=== PATIENT | male | born 1960 | race Caucasian/White ===

== ENCOUNTER 2019-04-20 12:15 | Inpatient (IN) | payer OTHER, MEDICARE ==
[2019-04-20 15:17] LABS: BASO % 0.9 % (0-2.0); EOS % 0.8 % (0-4.5); HEMATOCRIT 40.1 % (35.4-49); HEMOGLOBIN 13.6 GM/dL (11.7-16.9); LYMPH % 23.5 % (8-40); MCHC 33.9 g/dl (32.0-35.9); MEAN CELL VOLUME 91.3 fl (80-96); MEAN PLT VOLUME 7.8 fl (7.5-11.1); MONO % 8.8 % (3.8-10.2); PLATELET COUNT 245 K/MM3 (134-434); RBC 4.39 M/mm3 (4.00-5.60); WHITE BLOOD COUNT 6.6 K/mm3 (4.0-10.0)
[2019-04-20 15:37] LABS: INR 1.18 (0.83-1.09)
[2019-04-20] MEDS ORDERED: methylPREDNISolone NA SUCC 1000 MG/8 ML VIAL IVPB ONE (15:37)
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
[2019-04-20 15:41] LABS: ALBUMIN 3.7 g/dl (3.4-5.0); BILIRUBIN,TOTAL 0.2 mg/dL (0.2-1); BLOOD UREA NITROGEN 19.9 mg/dL (7-18); CALCIUM 9.3 mg/dL (8.5-10.1); CREATININE 0.7 mg/dL (0.55-1.3); POTASSIUM 3.7 mmol/L (3.5-5.1); TOT PROT 6.5 g/dl (6.4-8.2)
--- NOTE | 2019-04-20 15:58 | PDOC ---
Attending Attestation - Resident Resident Name: TrulatoyaJason - ED Attending Attestation I have performed the following: I have examined & evaluated the patient, The case was reviewed & discussed with the resident, I agree w/resident's findings & plan - HPI HPI: 04/20/19 15:56 59y/o M sent for admission for iv steroids by Dr. Silverio for management of MS. - Physicial Exam PE: 04/20/19 15:56 VSS, no respiratory distress, alert and conversant s1s2 rrr, ctab - Medical Decision Making 04/20/19 15:57 59y/o M for steroid management of MS. labs sent Dr. Silverio consulted steroids initiated admit Heart Score/ECG Review #1 ECG reviewed & interpreted by me at: 14:30 General ECG Interpretation: Sinus Rhythm, Normal Rate (64), Normal Intervals ( qtc 418), No acute ischemic changes
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
[2019-04-20] MEDS ORDERED: DOXYCYCLINE HYCLATE 100 MG CAPSULE PO SCH (18:15)
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
[2019-04-20] MEDS ORDERED: methylPREDNISolone NA SUCC 1000 MG/8 ML VIAL IVPB SCH (22:00)
[2019-04-20] MEDS: methylPREDNISolone NA SUCC 125 MG/2 ML VIAL IVPB SCH (22:17)
[2019-04-20] MEDS: METHADONE HCL 5 MG TABLET PO SCH (22:18)
[2019-04-20] MEDS: DOXYCYCLINE HYCLATE 100 MG CAPSULE PO SCH ×2 (22:18→23:02)
[2019-04-20] MEDS: FUROSEMIDE 40 MG TABLET (FP) PO SCH ×2 (22:18→23:03)
[2019-04-21 07:51] LABS: BASO % 0.2 % (0-2.0); HEMATOCRIT 41.6 % (35.4-49); HEMOGLOBIN 14.3 GM/dL (11.7-16.9); LYMPH % 18.6 % (8-40); MCH 31.8 pg (25.7-33.7); MCHC 34.4 g/dl (32.0-35.9); MEAN CELL VOLUME 92.4 fl (80-96); MEAN PLT VOLUME 7.9 fl (7.5-11.1); MONO % 1.1 % (3.8-10.2); NEUT % 80.1 % (42.8-82.8); PLATELET COUNT 232 K/MM3 (134-434); RDW 13.8 % (11.9-15.9); WHITE BLOOD COUNT 3.7 K/mm3 (4.0-10.0)
--- NOTE | 2019-04-21 08:04 | PN ---
Physical Exam: SUBJECTIVE: Patient seen and examined OBJECTIVE: Vital Signs Period Temp Pulse Resp BP Sys/Porter Pulse Ox Last 24 Hr 97.7 F-98.2 F 56-89 16-22 110-148/74-102 97-100 GENERAL: The patient is awake, alert, and fully oriented, in no acute distress. HEAD: Normal with no signs of trauma. EYES: PERRL, extraocular movements intact, sclera anicteric, conjunctiva clear. No ptosis. ENT: Ears normal, nares patent, oropharynx clear without exudates, moist mucous membranes. NECK: Trachea midline, full range of motion, supple. LUNGS: Breath sounds equal, clear to auscultation bilaterally, no wheezes, no crackles, no accessory muscle use. HEART: Regular rate and rhythm, S1, S2 without murmur, rub or gallop. ABDOMEN: Soft, nontender, nondistended, normoactive bowel sounds, no guarding, no rebound, no hepatosplenomegaly, no masses. EXTREMITIES: 2+ pulses, warm, well-perfused, no edema. NEUROLOGICAL: Cranial nerves II through XII grossly intact. Normal speech, gait not observed. PSYCH: Normal mood, normal affect. SKIN: Warm, dry, normal turgor, no rashes or lesions noted Laboratory Results - last 24 hr 04/20/19 04/20/19 04/20/19 14:57 14:57 14:57 WBC 6.6 RBC 4.39 Hgb 13.6 Hct 40.1 MCV 91.3 MCH 31.0 MCHC 33.9 RDW 14.0 Plt Count 245 MPV 7.8 Absolute Neuts (auto) 4.3 Neutrophils % 66.0 Lymphocytes % 23.5 Monocytes % 8.8 Eosinophils % 0.8 Basophils % 0.9 Nucleated RBC % 0 PT with INR INR PTT (Actin FS) 32.4 Sodium 141 Potassium 3.7 Chloride 104 Carbon Dioxide 32 Anion Gap 6 L BUN 19.9 H Creatinine 0.7 Est GFR (CKD-EPI)AfAm 118.88 Est GFR (CKD-EPI)NonAf 102.57 Random Glucose 89 Calcium 9.3 Total Bilirubin 0.2 AST 22 ALT 29 Alkaline Phosphatase 94 Total Protein 6.5 Albumin 3.7 04/20/19 14:57 WBC RBC Hgb Hct MCV MCH MCHC RDW Plt Count MPV Absolute Neuts (auto) Neutrophils % Lymphocytes % Monocytes % Eosinophils % Basophils % Nucleated RBC % PT with INR 14.00 H INR 1.18 H PTT (Actin FS) Sodium Potassium Chloride Carbon Dioxide Anion Gap BUN Creatinine Est GFR (CKD-EPI)AfAm Est GFR (CKD-EPI)NonAf Random Glucose Calcium Total Bilirubin AST ALT Alkaline Phosphatase Total Protein Albumin Active Medications Generic Name Dose Route Start Last Admin Trade Name Freq PRN Reason Stop Dose Admin Doxycycline Hyclate 100 mg 04/21/19 07:00 Vibramycin - PO AM [facility] Doxycycline Hyclate 200 mg 04/20/19 22:00 04/20/19 23:02 Vibramycin - PO Not Given HS [facility] Enoxaparin Sodium 40 mg 04/21/19 10:00 Lovenox - SQ DAILY [facility] Furosemide 40 mg 04/20/19 22:00 04/20/19 23:03 Lasix - PO Not Given BID [facility] Methadone HCl 5 mg 04/20/19 22:00 04/20/19 22:18 Dolophine - PO 5 mg TID [facility] Administration Methylprednisolone Sodium Succinate 500 mg 04/20/19 22:00 04/20/19 22:17 Solu-Medrol - IVPB 04/25/19 10:01 500 mg BID [facility] Administration ASSESSMENT/PLAN: ATTENDING PHYSICIAN STATEMENT I saw and evaluated the patient. I reviewed the resident's note and discussed the case with the resident. I agree with the resident's findings and plan as documented. SUBJECTIVE: OBJECTIVE: ASSESSMENT AND PLAN:
[2019-04-21 08:21] LABS: BLOOD UREA NITROGEN 13.7 mg/dL (7-18); CALCIUM 9.4 mg/dL (8.5-10.1); CREATININE 0.7 mg/dL (0.55-1.3); MAGNESIUM 2.5 mg/dL (1.8-2.4); POTASSIUM 4.1 mmol/L (3.5-5.1)
[2019-04-21] MEDS: methylPREDNISolone NA SUCC 125 MG/2 ML VIAL IVPB SCH ×2 (09:17→21:56)
[2019-04-21] MEDS: DOXYCYCLINE HYCLATE 100 MG CAPSULE PO SCH ×2 (09:18→21:56)
[2019-04-21] MEDS: ENOXAPARIN NA (PORCINE) 40 MG/0.4 ML DISP.SYRIN SQ SCH (09:19)
[2019-04-21] MEDS: FUROSEMIDE 40 MG TABLET (FP) PO SCH (09:19)
[2019-04-21] MEDS: METHADONE HCL 5 MG TABLET PO SCH ×3 (09:19→21:56)
[2019-04-21] MEDS ORDERED: ENOXAPARIN NA (PORCINE) 40 MG/0.4 ML DISP.SYRIN SQ SCH (10:00)
--- NOTE | 2019-04-21 10:18 | EKG ---
Test Reason : Blood Pressure : / mmHG Vent. Rate : 064 BPM Atrial Rate : 064 BPM P-R Int : 118 ms QRS Dur : 086 ms QT Int : 406 ms P-R-T Axes : 031 000 037 degrees QTc Int : 418 ms NORMAL SINUS RHYTHM NORMAL ECG NO PREVIOUS ECGS AVAILABLE Confirmed by KENTRELL CANAS, VARGHESE ([id number]) on 04/21/2019 10:18:33 AM Referred By: Confirmed By:VARGHESE PFEIFFER MD
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
--- NOTE | 2019-04-21 15:28 | ECHO ---
Name: BRIJESH MITCHELL Exam:Adult Echocardiogram Study Date: 04/21/2019 02:10 PM Age: 59 yrs Reason For Study: tachycardia Height: 69 in Weight: 127 lb BSA: 1.7 m2 MMode/2D Measurements & Calculations IVSd: 0.97 cm Ao root diam: 3.3 cm LVIDd: 5.7 cm LA dimension: 3.1 cm LVIDs: 4.2 cm ACS: 1.8 cm LVPWd: 0.86 cm IVSs: 1.4 cm LVPWs: 1.2 cm EDV(Teich): 159.6 ml ESV(Teich): 76.5 ml Doppler Measurements & Calculations MV E max kapil: 76.8 cm/sec Ao V2 max: 145.9 cm/sec MV A max kapil: 58.0 cm/sec Ao max P.5 mmHg MV E/A: 1.3 Ao V2 mean: 106.5 cm/sec Ao mean P.0 mmHg Ao V2 VTI: 32.3 cm Med Peak E' Kapil: 7.5 cm/sec Med E/e': 10.3 Lat Peak E' Kapil: 10.9 cm/sec Lat E/e': 7.1 Procedure A two-dimensional transthoracic echocardiogram with color flow and Doppler was performed. Left Ventricle The left ventricular size, thickness and function are normal. The left ventricular ejection fraction is normal. Left Ventricular Filling pattern is normal for age. The left ventricular wall motion is willi l. Right Ventricle The right ventricle is not well visualized. Atria Normal left and right atrial size and function. Mitral Valve The mitral valve is normal in structure and function. There is no mitral valve stenosis. There is tra ce to mild mitral regurgitation. Tricuspid Valve There is trivial tricuspid valve thickening. There is no tricuspid stenosis. There was insufficient T R detected to calculate RV systolic pressure. Aortic Valve The aortic valve is normal in structure and function. No hemodynamically significant valvular aortic stenosis. No aortic regurgitation is present. Pulmonic Valve The pulmonic valve is not well visualized. Great Vessels The aortic root is normal size. Pericardium/Pleura There is no pericardial effusion. Interpretation Summary The left ventricular size, thickness and function are normal The left ventricular ejection fraction is normal. Left Ventricular Filling pattern is normal for age. The left ventricular wall motion is normal. There is trace to mild mitral regurgitation. There was insufficient TR detected to calculate RV systolic pressure. MD Kiran De La Rosa 04/21/2019 03:27 PM
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
--- NOTE | 2019-04-21 18:11 | PN ---
Teaching Attending Note Name of Resident: Isamar Suarez ATTENDING PHYSICIAN STATEMENT I saw and evaluated the patient. I reviewed the resident's note and discussed the case with the resident. I agree with the resident's findings and plan as documented. SUBJECTIVE: No significant improvement in R hand weakness. OBJECTIVE: Afebrile, Hemodynamically Stable. Last Vital Signs Temp Pulse Resp BP Pulse Ox 98.8 F 93 H 20 113/81 97 04/21/19 13:55 04/21/19 13:55 04/21/19 13:55 04/21/19 13:55 04/21/19 00:47 Heart - S1, S2, RRR Lungs - clear to auscultation Abdomen - Soft, non-tender. Bowel Sounds normal. Extremities - mild edema, no calf tenderness, R Hand splinted. Neuro - AAO x 3. Unable to move lower extremities. Weakness R upper extremity, worse distally in hand. Laboratory Results - last 24 hr 04/21/19 04/21/19 04/21/19 05:54 06:45 06:45 WBC 3.7 L RBC 4.50 Hgb 14.3 Hct 41.6 MCV 92.4 MCH 31.8 MCHC 34.4 RDW 13.8 Plt Count 232 MPV 7.9 Absolute Neuts (auto) 2.9 Neutrophils % 80.1 D Lymphocytes % 18.6 D Monocytes % 1.1 L D Eosinophils % 0.0 D Basophils % 0.2 Nucleated RBC % 0 Sodium 143 Potassium 4.1 Chloride 104 Carbon Dioxide 32 Anion Gap 6 L BUN 13.7 Creatinine 0.7 Est GFR (CKD-EPI)AfAm 118.88 Est GFR (CKD-EPI)NonAf 102.57 POC Glucometer 148 Random Glucose 151 H Calcium 9.4 Phosphorus 4.0 Magnesium 2.5 H 04/21/19 16:23 WBC RBC Hgb Hct MCV MCH MCHC RDW Plt Count MPV Absolute Neuts (auto) Neutrophils % Lymphocytes % Monocytes % Eosinophils % Basophils % Nucleated RBC % Sodium Potassium Chloride Carbon Dioxide Anion Gap BUN Creatinine Est GFR (CKD-EPI)AfAm Est GFR (CKD-EPI)NonAf POC Glucometer 194 Random Glucose Calcium Phosphorus Magnesium Current Medications Generic Name Dose Route Start Last Admin Trade Name Freq PRN Reason Stop Dose Admin Doxycycline Hyclate 100 mg 04/21/19 07:00 04/21/19 09:18 Vibramycin - PO 100 mg AM [facility] Administration Doxycycline Hyclate 200 mg 04/20/19 22:00 04/20/19 23:02 Vibramycin - PO Not Given HS [facility] Enoxaparin Sodium 40 mg 04/21/19 10:00 04/21/19 09:19 Lovenox - SQ 40 mg DAILY [facility] Administration Furosemide 40 mg 04/20/19 22:00 04/21/19 09:19 Lasix - PO 40 mg BID [facility] Administration Methadone HCl 5 mg 04/20/19 22:00 04/21/19 14:44 Dolophine - PO 5 mg TID [facility] Administration Methylprednisolone Sodium Succinate 500 mg 04/20/19 22:00 04/21/19 09:17 Solu-Medrol - IVPB 04/25/19 10:01 500 mg BID [facility] Administration ASSESSMENT AND PLAN: 59 year old male with MS (paraparesis, RUE weakness, bladder/bowel dysfunction, indwelling montes de oca), Chronic Lyme Disease, Hx of traumatic R clavicular injury, referred to ED by Dr. Silverio for IV Steroid for R Brachial Plexus paralysis. 1. R Brachial Plexus Paralysis secondary to ? MS Flare versus injury Continue Methylprednisolone 500mg q12h MRI Brain/C-Spine requested Neurology consulted. 2. Chronic Pain secondary to MS Continue Methadone 3. Hx of Lyme Disease - on Doxycycline chronically (>10 years) for "anti- inflammatory properties" as per pain management. 4. On Lasix PRN as per PCP for LE edema/venous stasis. No known history of HF - will confirm by Echo. DVT Px - Lovenox SQ.
[2019-04-22 08:14] LABS: BASO % 0.1 % (0-2.0); HEMATOCRIT 40.2 % (35.4-49); HEMOGLOBIN 13.4 GM/dL (11.7-16.9); LYMPH % 9.3 % (8-40); MCH 31.1 pg (25.7-33.7); MCHC 33.4 g/dl (32.0-35.9); MEAN CELL VOLUME 93.2 fl (80-96); MEAN PLT VOLUME 8.2 fl (7.5-11.1); MONO % 4.1 % (3.8-10.2); NEUT % 86.5 % (42.8-82.8); RBC 4.31 M/mm3 (4.00-5.60); RDW 13.8 % (11.9-15.9); WHITE BLOOD COUNT 8.9 K/mm3 (4.0-10.0)
[2019-04-22 08:27] LABS: ALBUMIN 3.5 g/dl (3.4-5.0); BILIRUBIN,TOTAL 0.2 mg/dL (0.2-1); BLOOD UREA NITROGEN 13.4 mg/dL (7-18); CALCIUM 9.1 mg/dL (8.5-10.1); CREATININE 0.7 mg/dL (0.55-1.3); MAGNESIUM 2.5 mg/dL (1.8-2.4); PHOSPHOROUS 3.8 mg/dL (2.5-4.9); POTASSIUM 4.1 mmol/L (3.5-5.1); TOT PROT 6.1 g/dl (6.4-8.2)
[2019-04-22 08:39] LABS: PLATELET COUNT 225 K/MM3 (134-434)
[2019-04-22] MEDS: METHADONE HCL 5 MG TABLET PO SCH ×4 (10:56→22:11)
[2019-04-22] MEDS: FUROSEMIDE 40 MG TABLET (FP) PO SCH (11:33)
[2019-04-22] MEDS: ENOXAPARIN NA (PORCINE) 40 MG/0.4 ML DISP.SYRIN SQ SCH (11:33)
[2019-04-22] MEDS: DOXYCYCLINE HYCLATE 100 MG CAPSULE PO SCH ×2 (11:33→22:11)
[2019-04-22] MEDS: methylPREDNISolone NA SUCC 125 MG/2 ML VIAL IVPB SCH ×2 (11:47→22:11)
--- NOTE | 2019-04-22 12:02 | PN ---
Progress Note (short form) - Note Progress Note: NEUROLOGY PROGRESS: Events reviewed and discussed with staff. PT at bedside doing ROM. Now on day #3 of Solumedrol. BS monitoring ongoing and BG's in 150s. Had MRI of brain/cervical spine at [facility] last month (but without contrast) . Ongoing chronic shoulder pain due to clavicular fracture. CARMELO: -Lhermitte's. Tate in situ. NEURO: MS/speech: Normal CN II-XII: sig for gaze-directed left clockwise and downbeating Nystagmus. Gag OK Motor: Left arm 4/5 right arm 3/5. Paraplegic. Areflexic in the legs. Plantars silent. Coord: Mild B/L FTN Dystaxia Sensory: reduced vibration and sharp both legs up to knees IMP: Multiple Sclerosis, exacerbation Right brachial plexopathy SUGGEST: Continue IV Solumedrol 500 mg q 12 hrs x 5 days Await MRI of brain and cervical spine (Both C-/C+) and review prior neuroimaging done at [facility] Continue BS monitoring and labs Thank you very much, Guilherme Silverio MD
[2019-04-22 13:37] VITALS: BMI 18.7
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
--- NOTE | 2019-04-22 16:24 | PN ---
Teaching Attending Note Name of Resident: Isamar Suarez ATTENDING PHYSICIAN STATEMENT I saw and evaluated the patient. I reviewed the resident's note and discussed the case with the resident. I agree with the resident's findings and plan as documented. SUBJECTIVE: No significant improvement in R hand weakness. OBJECTIVE: Afebrile, Hemodynamically Stable. Last Vital Signs Temp Pulse Resp BP Pulse Ox 97.8 F 80 20 128/85 97 04/22/19 14:11 04/22/19 14:11 04/22/19 14:11 04/22/19 14:11 04/21/19 22:00 Heart - S1, S2, RRR Lungs - clear to auscultation Abdomen - Soft, non-tender. Bowel Sounds normal. Extremities - mild edema, no calf tenderness, R Hand splinted. Neuro - AAO x 3. Unable to move lower extremities. Weakness R upper extremity, worse distally in hand. Laboratory Results - last 24 hr 04/21/19 04/22/19 04/22/19 16:23 06:06 07:00 WBC 8.9 RBC 4.31 Hgb 13.4 Hct 40.2 MCV 93.2 MCH 31.1 MCHC 33.4 RDW 13.8 Plt Count 225 MPV 8.2 Absolute Neuts (auto) 7.7 Neutrophils % 86.5 H Lymphocytes % 9.3 D Monocytes % 4.1 D Eosinophils % 0.0 Basophils % 0.1 Nucleated RBC % 0 Sodium Potassium Chloride Carbon Dioxide Anion Gap BUN Creatinine Est GFR (CKD-EPI)AfAm Est GFR (CKD-EPI)NonAf POC Glucometer 194 163 Random Glucose Calcium Phosphorus Magnesium Total Bilirubin AST ALT Alkaline Phosphatase Total Protein Albumin 04/22/19 07:00 WBC RBC Hgb Hct MCV MCH MCHC RDW Plt Count MPV Absolute Neuts (auto) Neutrophils % Lymphocytes % Monocytes % Eosinophils % Basophils % Nucleated RBC % Sodium 142 Potassium 4.1 Chloride 105 Carbon Dioxide 33 H Anion Gap 4 L BUN 13.4 Creatinine 0.7 Est GFR (CKD-EPI)AfAm 118.88 Est GFR (CKD-EPI)NonAf 102.57 POC Glucometer Random Glucose 154 H Calcium 9.1 Phosphorus 3.8 Magnesium 2.5 H Total Bilirubin 0.2 AST 15 ALT 35 Alkaline Phosphatase 75 Total Protein 6.1 L Albumin 3.5 Current Medications Generic Name Dose Route Start Last Admin Trade Name Freq PRN Reason Stop Dose Admin Doxycycline Hyclate 100 mg 04/21/19 07:00 04/22/19 11:33 Vibramycin - PO 100 mg AM [facility] Administration Doxycycline Hyclate 200 mg 04/20/19 22:00 04/21/19 21:56 Vibramycin - PO 200 mg HS [facility] Administration Enoxaparin Sodium 40 mg 04/21/19 10:00 04/22/19 11:33 Lovenox - SQ 40 mg DAILY [facility] Administration Furosemide 40 mg 04/22/19 10:00 04/22/19 11:33 Lasix - PO 40 mg DAILY [facility] Administration Methadone HCl 5 mg 04/20/19 22:00 04/22/19 11:44 Dolophine - PO 5 mg TID [facility] Administration Methylprednisolone Sodium Succinate 500 mg 04/20/19 22:00 04/22/19 11:47 Solu-Medrol - IVPB 04/25/19 10:01 500 mg BID [facility] Administration ASSESSMENT AND PLAN: 59 year old male with MS (paraparesis, RUE weakness, bladder/bowel dysfunction, indwelling montes de oca), Chronic Lyme Disease, Hx of traumatic R clavicular injury, referred to ED by Dr. Silverio for IV Steroid for R Brachial Plexus paralysis. 1. R Brachial Plexus Paralysis secondary to ? MS Flare versus injury Continue Methylprednisolone 500mg q12h MRI Brain/C-Spine pending. Neurology consulted. 2. Chronic Pain secondary to MS Continue Methadone 3. Hx of Lyme Disease - on Doxycycline chronically (>10 years) for "anti- inflammatory properties" as per pain management. 4. On Lasix PRN as per PCP for LE edema/venous stasis. Echo - normal EF. DVT Px - Lovenox SQ.
[2019-04-23] MEDS: DOXYCYCLINE HYCLATE 100 MG CAPSULE PO SCH ×2 (06:36→22:21)
[2019-04-23] MEDS: METHADONE HCL 5 MG TABLET PO SCH ×3 (06:36→22:21)
[2019-04-23 08:54] LABS: BASO % 0.1 % (0-2.0); HEMATOCRIT 44.5 % (35.4-49); LYMPH % 8.7 % (8-40); MCH 31.5 pg (25.7-33.7); MCHC 33.8 g/dl (32.0-35.9); MEAN CELL VOLUME 93.2 fl (80-96); MEAN PLT VOLUME 8.1 fl (7.5-11.1); MONO % 5.6 % (3.8-10.2); NEUT % 85.6 % (42.8-82.8); RBC 4.78 M/mm3 (4.00-5.60); RDW 14.2 % (11.9-15.9)
[2019-04-23 09:22] LABS: PLATELET COUNT 201 K/MM3 (134-434)
[2019-04-23 09:26] LABS: ALBUMIN 3.6 g/dl (3.4-5.0); BILIRUBIN,TOTAL 0.4 mg/dL (0.2-1); BLOOD UREA NITROGEN 14.7 mg/dL (7-18); CREATININE 0.5 mg/dL (0.55-1.3); MAGNESIUM 2.7 mg/dL (1.8-2.4); PHOSPHOROUS 3.1 mg/dL (2.5-4.9); POTASSIUM 4.1 mmol/L (3.5-5.1); TOT PROT 6.5 g/dl (6.4-8.2)
[2019-04-23] MEDS: FUROSEMIDE 40 MG TABLET (FP) PO SCH (09:26)
[2019-04-23] MEDS: ENOXAPARIN NA (PORCINE) 40 MG/0.4 ML DISP.SYRIN SQ SCH (09:26)
[2019-04-23] MEDS: methylPREDNISolone NA SUCC 125 MG/2 ML VIAL IVPB SCH ×2 (09:50→22:22)
--- NOTE | 2019-04-23 16:19 | PN ---
Teaching Attending Note Name of Resident: Isamar Suarez ATTENDING PHYSICIAN STATEMENT I saw and evaluated the patient. I reviewed the resident's note and discussed the case with the resident. I agree with the resident's findings and plan as documented. SUBJECTIVE: Some improvement in R hand weakness. OBJECTIVE: Afebrile, Hemodynamically Stable. Last Vital Signs Temp Pulse Resp BP Pulse Ox 98.6 F 77 18 126/64 99 04/23/19 14:36 04/23/19 14:36 04/23/19 14:36 04/23/19 14:36 04/23/19 09:00 Heart - S1, S2, RRR Lungs - clear to auscultation Abdomen - Soft, non-tender. Bowel Sounds normal. Extremities - mild edema, no calf tenderness, R Hand splinted. Power increased RUE Neuro - AAO x 3. Unable to move lower extremities. Weakness R upper extremity, worse distally in hand - improving. Laboratory Results - last 24 hr 04/22/19 04/23/19 04/23/19 18:47 05:18 08:30 WBC 7.0 RBC 4.78 Hgb 15.0 Hct 44.5 MCV 93.2 MCH 31.5 MCHC 33.8 RDW 14.2 Plt Count 201 MPV 8.1 Absolute Neuts (auto) 6.0 Neutrophils % 85.6 H Lymphocytes % 8.7 Monocytes % 5.6 Eosinophils % 0.0 Basophils % 0.1 Nucleated RBC % 0 Sodium Potassium Chloride Carbon Dioxide Anion Gap BUN Creatinine Est GFR (CKD-EPI)AfAm Est GFR (CKD-EPI)NonAf POC Glucometer 167 125 Random Glucose Calcium Phosphorus Magnesium Total Bilirubin AST ALT Alkaline Phosphatase Total Protein Albumin 04/23/19 08:32 WBC RBC Hgb Hct MCV MCH MCHC RDW Plt Count MPV Absolute Neuts (auto) Neutrophils % Lymphocytes % Monocytes % Eosinophils % Basophils % Nucleated RBC % Sodium 140 Potassium 4.1 Chloride 103 Carbon Dioxide 31 Anion Gap 6 L BUN 14.7 Creatinine 0.5 L Est GFR (CKD-EPI)AfAm 136.51 Est GFR (CKD-EPI)NonAf 117.79 POC Glucometer Random Glucose 125 H Calcium 9.0 Phosphorus 3.1 Magnesium 2.7 H Total Bilirubin 0.4 AST 17 ALT 41 Alkaline Phosphatase 84 Total Protein 6.5 Albumin 3.6 Current Medications Generic Name Dose Route Start Last Admin Trade Name Freq PRN Reason Stop Dose Admin Doxycycline Hyclate 100 mg 04/21/19 07:00 04/23/19 06:36 Vibramycin - PO 100 mg AM [facility] Administration Doxycycline Hyclate 200 mg 04/20/19 22:00 04/22/19 22:11 Vibramycin - PO 200 mg HS [facility] Administration Enoxaparin Sodium 40 mg 04/21/19 10:00 04/23/19 09:26 Lovenox - SQ 40 mg DAILY [facility] Administration Furosemide 40 mg 04/22/19 10:00 04/23/19 09:26 Lasix - PO 40 mg DAILY [facility] Administration Methadone HCl 5 mg 04/20/19 22:00 04/23/19 14:10 Dolophine - PO 5 mg TID [facility] Administration Methylprednisolone Sodium Succinate 500 mg 04/20/19 22:00 04/23/19 09:50 Solu-Medrol - IVPB 04/25/19 10:01 500 mg BID [facility] Administration ASSESSMENT AND PLAN: 59 year old male with MS (paraparesis, RUE weakness, bladder/bowel dysfunction, indwelling montes de oca), Chronic Lyme Disease, Hx of traumatic R clavicular injury, referred to ED by Dr. Silverio for IV Steroid for R Brachial Plexus paralysis. 1. R Brachial Plexus Paralysis secondary to ? MS Flare versus brachial plexus injury Continue Methylprednisolone 500mg q12h - Day 3 MRI Brain/C-Spine - no stroke/hemorrhage, 2 left frontal subcortical hyperintense lesions. Neurology following. 2. Chronic Pain secondary to MS Continue Methadone 3. Hx of Lyme Disease - on Doxycycline chronically (>10 years) for "anti- inflammatory properties" as per pain management. 4. On Lasix PRN as per PCP for LE edema/venous stasis. Echo - normal EF. DVT Px - Lovenox SQ.
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
--- NOTE | 2019-04-23 17:48 | PN ---
Progress Note (short form) - Note Progress Note: NEUROLOGY PROGRESS: Events and MRI scans reviewed. Pt examined. Now s/p 03/15 medrol infusions In good spirits. Denies steroid side effects. BG's stable. Pt notes improved ability to raise right arm and improved dexterity on the left. MRI of brain(C-/C+) shows scattered white matter lesions without enhancement and "dirty white matter" in the madie. MRI of cervical spine shows white matter changes at multiple levels without enhancement. EXAM: -Rocky's CN II-XII: unremarkable Right arm 4-/5. Left 4+/5. Decreased OMEGA's R>>>L Paraplegic Decreased vibration legs. IMP: Demyelinating disease, Probably Multiple sclerosis. Some improvement on Medrol protocol. Plan: Continue solumedrol. Last infusion should be Friday AM Plan D/C Friday after last IV Medrol Check anti-aquaporin 4 antibodies (Neuromyelitis optica) Neuro f/u as out patient Resume Ocrevis in Aug. Thank you very much, Guilherme Silverio MD
[2019-04-24] MEDS: DOXYCYCLINE HYCLATE 100 MG CAPSULE PO SCH ×2 (06:52→21:57)
[2019-04-24] MEDS: METHADONE HCL 5 MG TABLET PO SCH ×3 (06:52→21:57)
[2019-04-24 09:16] LABS: ALBUMIN 3.3 g/dl (3.4-5.0); BILIRUBIN,TOTAL 0.2 mg/dL (0.2-1); BLOOD UREA NITROGEN 16.4 mg/dL (7-18); CALCIUM 8.9 mg/dL (8.5-10.1); CREATININE 0.5 mg/dL (0.55-1.3); MAGNESIUM 2.7 mg/dL (1.8-2.4); PHOSPHOROUS 3.5 mg/dL (2.5-4.9); POTASSIUM 4.2 mmol/L (3.5-5.1); TOT PROT 5.9 g/dl (6.4-8.2)
[2019-04-24] MEDS: ENOXAPARIN NA (PORCINE) 40 MG/0.4 ML DISP.SYRIN SQ SCH (09:25)
[2019-04-24] MEDS: FUROSEMIDE 40 MG TABLET (FP) PO SCH (09:25)
[2019-04-24] MEDS: methylPREDNISolone NA SUCC 125 MG/2 ML VIAL IVPB SCH ×2 (09:30→21:57)
[2019-04-24 10:31] LABS: HEMATOCRIT 42.7 % (35.4-49); HEMOGLOBIN 14.4 GM/dL (11.7-16.9); LYMPH % 8.1 % (8-40); MCH 31.3 pg (25.7-33.7); MCHC 33.7 g/dl (32.0-35.9); MEAN CELL VOLUME 92.9 fl (80-96); MEAN PLT VOLUME 8.7 fl (7.5-11.1); MONO % 6.3 % (3.8-10.2); NEUT % 85.6 % (42.8-82.8); PLATELET COUNT 220 K/MM3 (134-434); RBC 4.59 M/mm3 (4.00-5.60); RDW 13.9 % (11.9-15.9); WHITE BLOOD COUNT 7.9 K/mm3 (4.0-10.0)
--- NOTE | 2019-04-24 11:13 | PN ---
Teaching Attending Note Name of Resident: Isamar Suarez ATTENDING PHYSICIAN STATEMENT I saw and evaluated the patient. I reviewed the resident's note and discussed the case with the resident. I agree with the resident's findings and plan as documented. SUBJECTIVE: Continued improvement in R hand weakness. OBJECTIVE: Afebrile, Hemodynamically Stable. Last Vital Signs Temp Pulse Resp BP Pulse Ox 97.5 F L 52 L 18 100/66 99 04/24/19 06:00 04/24/19 06:00 04/24/19 06:00 04/24/19 06:00 04/23/19 21:00 Heart - S1, S2, RRR Lungs - clear to auscultation Abdomen - Soft, non-tender. Bowel Sounds normal. Extremities - mild edema, no calf tenderness, R Hand and UE power increased. Neuro - AAO x 3. Unable to move lower extremities. Weakness R upper extremity, worse distally in hand - improving. Laboratory Results - last 24 hr 04/23/19 04/24/19 04/24/19 17:41 07:35 08:25 WBC 7.9 RBC 4.59 Hgb 14.4 Hct 42.7 MCV 92.9 MCH 31.3 MCHC 33.7 RDW 13.9 Plt Count 220 MPV 8.7 Absolute Neuts (auto) 6.8 Neutrophils % 85.6 H Lymphocytes % 8.1 Monocytes % 6.3 Eosinophils % 0.0 Basophils % 0.0 Nucleated RBC % 0 Sodium Potassium Chloride Carbon Dioxide Anion Gap BUN Creatinine Est GFR (CKD-EPI)AfAm Est GFR (CKD-EPI)NonAf POC Glucometer 131 118 Random Glucose Calcium Phosphorus Magnesium Total Bilirubin AST ALT Alkaline Phosphatase Total Protein Albumin 04/24/19 08:25 WBC RBC Hgb Hct MCV MCH MCHC RDW Plt Count MPV Absolute Neuts (auto) Neutrophils % Lymphocytes % Monocytes % Eosinophils % Basophils % Nucleated RBC % Sodium 140 Potassium 4.2 Chloride 101 Carbon Dioxide 36 H Anion Gap 2 L BUN 16.4 Creatinine 0.5 L Est GFR (CKD-EPI)AfAm 136.51 Est GFR (CKD-EPI)NonAf 117.79 POC Glucometer Random Glucose 118 H Calcium 8.9 Phosphorus 3.5 Magnesium 2.7 H Total Bilirubin 0.2 AST 16 ALT 49 Alkaline Phosphatase 77 Total Protein 5.9 L Albumin 3.3 L Current Medications Generic Name Dose Route Start Last Admin Trade Name Freq PRN Reason Stop Dose Admin Doxycycline Hyclate 100 mg 04/21/19 07:00 04/24/19 06:52 Vibramycin - PO 100 mg AM [facility] Administration Doxycycline Hyclate 200 mg 04/20/19 22:00 04/23/19 22:21 Vibramycin - PO 200 mg HS [facility] Administration Enoxaparin Sodium 40 mg 04/21/19 10:00 04/24/19 09:25 Lovenox - SQ 40 mg DAILY [facility] Administration Furosemide 40 mg 04/22/19 10:00 04/24/19 09:25 Lasix - PO 40 mg DAILY [facility] Administration Methadone HCl 5 mg 04/20/19 22:00 04/24/19 06:52 Dolophine - PO 5 mg TID [facility] Administration Methylprednisolone Sodium Succinate 500 mg 04/20/19 22:00 04/24/19 09:30 Solu-Medrol - IVPB 04/25/19 10:01 500 mg BID [facility] Administration ASSESSMENT AND PLAN: 59 year old male with MS (paraparesis, RUE weakness, bladder/bowel dysfunction, indwelling montes de oca), Chronic Lyme Disease, Hx of traumatic R clavicular injury, referred to ED by Dr. Silverio for IV Steroid for R Brachial Plexus paralysis. 1. R Brachial Plexus Paralysis secondary to ? MS Flare versus brachial plexus injury Continue Methylprednisolone 500mg q12h - Day 4 MRI Brain/C-Spine - no stroke/hemorrhage, 2 left frontal subcortical hyperintense lesions. Neurology following - ordered RUE/Brachial Plexus MRI. 2. Chronic Pain secondary to MS Continue Methadone 3. Hx of Lyme Disease - on Doxycycline chronically (>10 years) for "anti- inflammatory properties" as per pain management. 4. On Lasix PRN as per PCP for LE edema/venous stasis. Echo - normal EF, no HF. Patient reports that he takes Lasix twice daily - continued daily on this admission. DVT Px - Lovenox SQ.
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
[2019-04-24] MEDS ORDERED: SENNOSIDES 8.6MG TABLET (FP) PO ONE (19:46)
[2019-04-24] MEDS ORDERED: SENNOSIDES/DOCUSATE COMBO (SENNA PLUS) TABLET (UD) PO ONE (20:10)
[2019-04-24] MEDS ORDERED: SENNOSIDES 8.6MG TABLET (FP) PO SCH (22:00)
[2019-04-25] MEDS: METHADONE HCL 5 MG TABLET PO SCH ×3 (05:57→21:14)
[2019-04-25] MEDS: DOXYCYCLINE HYCLATE 100 MG CAPSULE PO SCH ×2 (06:01→21:14)
[2019-04-25] MEDS: ENOXAPARIN NA (PORCINE) 40 MG/0.4 ML DISP.SYRIN SQ SCH (09:59)
[2019-04-25] MEDS: FUROSEMIDE 40 MG TABLET (FP) PO SCH ×2 (09:59→10:11)
[2019-04-25] MEDS: methylPREDNISolone NA SUCC 125 MG/2 ML VIAL IVPB SCH (09:59)
--- NOTE | 2019-04-25 11:33 | PN ---
Progress Note (short form) - Note Progress Note: SUBJECTIVE: Continued improvement in R hand weakness. Wants Rehab placement. OBJECTIVE: Afebrile, Hemodynamically Stable. Last Vital Signs Temp Pulse Resp BP Pulse Ox 98.4 F 63 18 105/75 98 04/25/19 06:00 04/25/19 06:00 04/25/19 06:00 04/25/19 06:00 04/24/19 21:00 Heart - S1, S2, RRR Lungs - clear to auscultation Abdomen - Soft, non-tender. Bowel Sounds normal. Extremities - mild edema, no calf tenderness, R Hand and UE power increased. Neuro - AAO x 3. Unable to move lower extremities. Weakness R upper extremity, worse distally in hand - improving. Laboratory Results - last 24 hr 04/25/19 05:56 POC Glucometer 125 Current Medications Generic Name Dose Route Start Last Admin Trade Name Freq PRN Reason Stop Dose Admin Doxycycline Hyclate 100 mg 04/21/19 07:00 04/25/19 06:01 Vibramycin - PO 100 mg AM [facility] Administration Doxycycline Hyclate 200 mg 04/20/19 22:00 04/24/19 21:57 Vibramycin - PO 200 mg HS [facility] Administration Enoxaparin Sodium 40 mg 04/21/19 10:00 04/25/19 09:59 Lovenox - SQ 40 mg DAILY [facility] Administration Furosemide 40 mg 04/22/19 10:00 04/25/19 10:11 Lasix - PO Not Given DAILY [facility] Methadone HCl 5 mg 04/20/19 22:00 04/25/19 05:57 Dolophine - PO 5 mg TID [facility] Administration ASSESSMENT AND PLAN: 59 year old male with MS (paraparesis, RUE weakness, bladder/bowel dysfunction, indwelling montes de oca), Chronic Lyme Disease, Hx of traumatic R clavicular injury, referred to ED by Dr. Silverio for IV Steroid for R Brachial Plexus paralysis. 1. R Brachial Plexus Paralysis secondary to ? MS Flare versus brachial plexus injury Continue Methylprednisolone 500mg q12h - Day 5 - last dose today MRI Brain/C-Spine - no stroke/hemorrhage, 2 left frontal subcortical hyperintense lesions. MRI RUE - Unremarkable. No Brachial Plexus injury identified. Neurology following. 2. Chronic Pain secondary to MS Continue Methadone 3. Hx of Lyme Disease - on Doxycycline chronically (>10 years) for "anti- inflammatory properties" as per pain management. 4. On Lasix PRN as per PCP for LE edema/venous stasis. Echo - normal EF, no HF. Patient reports that he takes Lasix twice daily - continued daily on this admission. DVT Px - Lovenox SQ. Dispo - patient requesting Rehab placement. Referred to SW/Case Management, awaiting dispo plan. Problem List - Problems (1) Multiple sclerosis exacerbation Code(s): G35 - MULTIPLE SCLEROSIS Visit type - Emergency Visit Emergency Visit: Yes ED Registration Date: 04/20/19 Care time: The patient presented to the Emergency Department on the above date and was hospitalized for further evaluation of their emergent condition. - New Patient This patient is new to me today: No - Critical Care Critical Care patient: No - Discharge Referral Referred to [facility] Med P.C.: No
[2019-04-25] MEDS ORDERED: SENNOSIDES 8.6MG TABLET (FP) PO PRN (15:16)
[2019-04-25] MEDS ORDERED: DOCUSATE SODIUM 100 MG CAPSULE (FP) PO PRN (15:16)
[2019-04-26 05:21] VITALS: BP 110/70; PULSE 56; TEMP 97.8
[2019-04-26] MEDS: METHADONE HCL 5 MG TABLET PO SCH ×2 (06:16→13:28)
[2019-04-26] MEDS: DOXYCYCLINE HYCLATE 100 MG CAPSULE PO SCH (06:16)
[2019-04-26] MEDS: ENOXAPARIN NA (PORCINE) 40 MG/0.4 ML DISP.SYRIN SQ SCH (09:44)
[2019-04-26] MEDS: FUROSEMIDE 40 MG TABLET (FP) PO SCH (09:45)
--- NOTE | 2019-04-26 11:40 | PN ---
Progress Note (short form) - Note Progress Note: NEUROLOGY PROGRESS: Events discussed with nursing staff and social scientist. Now s/p Medrol infusions. Pt is concerned he came here for further evaluation of his "brachial plexus" injury and worsening weakness in the right arm. Is unsure if Medrol improved symptoms. MRI of Upper extremity (reviewed): No right brachial plexopathy. EXAM: -Lhermitte's, however reproduces "pain" into R shoulder. CN II-XII: OS clockwise nystagmus at midline. Right arm 4-/5. Left 4+/5. Paraplegic Decreased vibration legs. IMP: Demyelinating disease, Probably Multiple sclerosis. Some improvement on Medrol protocol. Plan: D/C to home with 28/04 [facility]. Check anti-aquaporin 4 antibodies (Neuromyelitis optica) Neuro f/u as out patient Resume Ocrevis in Aug. Thank you very much, Guilherme Silverio MD
--- NOTE | 2019-04-26 11:53 | PN ---
Teaching Attending Note Name of Resident: Isamar Suarez ATTENDING PHYSICIAN STATEMENT I saw and evaluated the patient. I reviewed the resident's note and discussed the case with the resident. I agree with the resident's findings and plan as documented. SUBJECTIVE: Continued improvement in R hand weakness. Wants Rehab placement. OBJECTIVE: Afebrile, Hemodynamically Stable. Last Vital Signs Temp Pulse Resp BP Pulse Ox 97.8 F 56 L 18 110/70 98 04/26/19 05:20 04/26/19 05:20 04/26/19 05:20 04/26/19 05:20 04/25/19 21:00 Heart - S1, S2, RRR Lungs - clear to auscultation Abdomen - Soft, non-tender. Bowel Sounds normal. Extremities - mild edema, no calf tenderness, some increase in R Hand and UE power. Neuro - AAO x 3. Unable to move lower extremities. Weakness R upper extremity, worse distally in hand - improving. Laboratory Results - last 24 hr 04/25/19 04/26/19 16:36 06:14 POC Glucometer 156 74 Current Medications Generic Name Dose Route Start Last Admin Trade Name Freq PRN Reason Stop Dose Admin Docusate Sodium 100 mg 04/25/19 15:16 Colace - PO BID PRN CONSTIPATION Doxycycline Hyclate 100 mg 04/21/19 07:00 04/26/19 06:16 Vibramycin - PO 100 mg AM [facility] Administration Doxycycline Hyclate 200 mg 04/20/19 22:00 04/25/19 21:14 Vibramycin - PO 200 mg HS [facility] Administration Enoxaparin Sodium 40 mg 04/21/19 10:00 04/26/19 09:44 Lovenox - SQ 40 mg DAILY [facility] Administration Furosemide 40 mg 04/22/19 10:00 04/26/19 09:45 Lasix - PO 40 mg DAILY [facility] Administration Methadone HCl 5 mg 04/20/19 22:00 04/26/19 06:16 Dolophine - PO 5 mg TID [facility] Administration Senna 2 tab 04/25/19 15:16 Senna - PO HS PRN CONSTIPATION ASSESSMENT AND PLAN: 59 year old male with MS (paraparesis, RUE weakness, bladder/bowel dysfunction, indwelling montes de oca), Chronic Lyme Disease, Hx of traumatic R clavicular injury, referred to ED by Dr. Dickoff for IV Steroid for R Brachial Plexus paralysis. 1. R Brachial Plexus Paralysis secondary to ? MS Flare versus brachial plexus injury Continue Methylprednisolone 500mg q12h - last dose 04/25 MRI Brain/C-Spine - no stroke/hemorrhage, 2 left frontal subcortical hyperintense lesions. MRI RUE - Unremarkable. No Brachial Plexus injury identified. Neurology following - recommends discharge home with 24 hour HHS and to resume Ocrevis in Aug. 2. Chronic Pain secondary to MS Continue Methadone 3. Hx of Lyme Disease - on Doxycycline chronically (>10 years) for "anti- inflammatory properties" as per pain management. 4. On Lasix PRN as per PCP for LE edema/venous stasis. Echo - normal EF, no HF. Patient reports that he takes Lasix twice daily - continued daily on this admission. DVT Px - Lovenox SQ. Dispo - patient requesting Rehab placement. Referred to SW/Case Management, has 24 hr HHS, awaiting dispo plan. Problem List - Problems (1) Multiple sclerosis exacerbation Code(s): G35 - MULTIPLE SCLEROSIS
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
== END 2019-04-26 14:43 | disposition home or self-care (01) | DRG 59 ==
LOC: JER 12:15 → JERBED 17:05 → J6S 18:36
DX: G35 Multiple sclerosis (principal); A69.20 Lyme disease, unspecified; G54.0 Brachial plexus disorders; G82.20 Paraplegia, unspecified; G37.9 Demyelinating disease of central nervous system, unspecified; I10 Essential (primary) hypertension; G83.23 Monoplegia of upper limb affecting right nondominant side; I87.8 Other specified disorders of veins; G93.9 Disorder of brain, unspecified; F11.90 Opioid use, unspecified, uncomplicated; R33.9 Retention of urine, unspecified; G89.29 Other chronic pain; V09.9XXS Pedestrian injured in unspecified transport accident, sequela; M25.511 Pain in right shoulder; M48.00 Spinal stenosis, site unspecified; Z79.52 Long term (current) use of systemic steroids
CPT/HCPCS: 36415; 70553-TC; 72156-TC; 73218-TC-RT; 80048; 80053; 82962; 83735; 84100; 85025; 85610; 85730; 93005; 93010; 93306-TC; 97162-GP; 99282-25; A9579